=== PATIENT | male | born 1960 | race Caucasian/White ===

== ENCOUNTER 2017-08-08 13:47 | Observation (INO) ==
[2017-08-08] MEDS ORDERED: ENOXAPARIN 100 MG/ML SYRINGE SUBCUT STA (14:13)
[2017-08-08] MEDS ORDERED: ASPIRIN 325 MG TABLET PO STA (14:13)
[2017-08-08] MEDS ORDERED: ALBUTEROL/IPRATROPIUM 3 ML NEB RESP TX STA (14:15)
[2017-08-08 14:25] LABS: Basophils # 0.1 10*3/uL (0.0-0.2); Eosinophils # 0.1 10*3/uL (0.0-0.87); Eosinophils % 0.7 % (0.00-10.9); Hematocrit 43.6 VOL% (42.0-52.0); Hemoglobin 15.2 GM/DL (14.0-18.0); Immature Granulocytes % 0.4 %; Immature Granulocytes Absolute 0.04 #; Lymphocytes # 2.3 10*3/uL (1.4-4.0); Lymphocytes % 23.1 % (21.2-54.2); Mean Corpuscular HGB Conc 34.9 GM/DL (32-36); Mean Corpuscular Hemoglobin 32 PG (27-34); Mean Corpuscular Volume 90.3 FL (87-102); Mean Platelet Volume 8.6 FL (9.6-12.0); Monocytes # 0.8 10*3/uL (0.11-0.8); Monocytes % 8.1 % (1.7-12.7); Neutrophils # 6.7 10*3/uL (1.4-7.4); Neutrophils % 66.7 % (38.7-73.9); Platelet Count 303 T/CUMM (130-400); Red Blood Count 4.83 MC/CUMM (3.8-5.5); Red Cell Distribution Width 12.6 % (9.3-17.3); White Blood Count 10.1 T/CUMM (4-12)
[2017-08-08] MEDS ORDERED: ASPIRIN 325 MG TABLET ONE (14:44)
[2017-08-08] MEDS ORDERED: ENOXAPARIN 100 MG/ML SYRINGE SUBCUT ONE (14:44)
[2017-08-08 14:50] LABS: Alanine Aminotransferase 16 U/L (16-61); Albumin 4.1 G/DL (3.4-5.0); Alkaline Phosphatase 113 U/L (45-117); Aspartate Amino Transferase 11 U/L (0-37); Bilirubin,Total < 0.39 MG/DL (0.2-1.0); Blood Urea Nitrogen 4 MG/DL (7-18); Calcium 8.7 MG/DL (8.5-10.1); Glucose 103 MG/DL (74-106); Osmolality,Calculated 269.8 MOS/KG (273-304); Potassium 4.1 MMOL/L (3.5-5.1); Sodium 137 MMOL/L (136-145); Total Protein 7.4 G/DL (6.4-8.3)
[2017-08-08] MEDS ORDERED: MORPHINE 2 MG/1 ML SYRINGE IV PRN (16:18)
[2017-08-08] MEDS ORDERED: ONDANSETRON 4 MG/2 ML VIAL IV PRN (16:18)
[2017-08-08] MEDS ORDERED: NITROGLYCERIN SL 0.4 MG TABLET SL PRN (16:18)
[2017-08-08] MEDS ORDERED: NYSTATIN 500,000 UNIT/5 ML UDCUP SWISH/SWAL PRN (16:22)
[2017-08-08] MEDS ORDERED: TRIAMCINOLONE 0.1% CREAM 15 GM TUBE TOP PRN (16:22)
[2017-08-08] MEDS: PANTOPRAZOLE 40 MG TABLET PO SCH (18:24)
[2017-08-08] MEDS: ALBUTEROL/IPRATROPIUM 3 ML NEB RESP TX SCH (20:10)
[2017-08-08] MEDS: SULFAMETHOX/TRIMETHOPRIM 800-160 MG TABLET PO SCH (20:35)
[2017-08-08] MEDS: BUDESONIDE/FORMOTEROL 160-4.5 INHALER 6 GM INH SCH (20:36)
[2017-08-09] MEDS: ALBUTEROL/IPRATROPIUM 3 ML NEB RESP TX SCH ×4 (08:00→19:32)
[2017-08-09 08:54] LABS: Risk Ratio 8.48; VLDL CHOLESTEROL 76.2 MG/DL
[2017-08-09] MEDS: CYANOCOBALAMIN 500 MCG TABLET PO SCH (09:07)
[2017-08-09] MEDS: SULFAMETHOX/TRIMETHOPRIM 800-160 MG TABLET PO SCH ×2 (09:07→20:52)
[2017-08-09] MEDS: ASPIRIN EC 325 MG TABLET PO SCH (09:07)
[2017-08-09] MEDS: CALCIUM (CARBONATE)/VITAMIN D 600 MG-400 UNIT TABLET PO SCH (09:07)
[2017-08-09] MEDS: CHOLECALCIFEROL 400 UNIT TABLET PO SCH (09:07)
[2017-08-09] MEDS: MONTELUKAST 10 MG TABLET PO SCH (09:07)
[2017-08-09] MEDS: PANTOPRAZOLE 40 MG TABLET PO SCH (09:07)
[2017-08-09] MEDS: TRIAMTERENE/HCTZ 37.5-25 MG CAPSULE PO SCH (09:07)
[2017-08-09] MEDS: ENOXAPARIN 40 MG/0.4 ML SYRINGE SUBCUT SCH (09:07)
[2017-08-09] MEDS: BUDESONIDE/FORMOTEROL 160-4.5 INHALER 6 GM INH SCH ×2 (09:09→20:52)
[2017-08-09] MEDS: DILTIAZEM CD 180 MG CAPSULE PO SCH (09:12)
[2017-08-09] MEDS: methylPREDNISolone SOD SUC 125 MG/2 ML VIAL IV SCH ×2 (11:58→23:44)
[2017-08-10] MEDS: ALBUTEROL/IPRATROPIUM 3 ML NEB RESP TX SCH ×4 (07:04→20:59)
[2017-08-10] MEDS: CHOLECALCIFEROL 400 UNIT TABLET PO SCH (08:29)
[2017-08-10] MEDS: TRIAMTERENE/HCTZ 37.5-25 MG CAPSULE PO SCH (08:29)
[2017-08-10] MEDS: CALCIUM (CARBONATE)/VITAMIN D 600 MG-400 UNIT TABLET PO SCH (08:30)
[2017-08-10] MEDS: CYANOCOBALAMIN 500 MCG TABLET PO SCH (08:30)
[2017-08-10] MEDS: DILTIAZEM CD 180 MG CAPSULE PO SCH (08:30)
[2017-08-10] MEDS: SULFAMETHOX/TRIMETHOPRIM 800-160 MG TABLET PO SCH ×2 (08:31→20:57)
[2017-08-10] MEDS: PANTOPRAZOLE 40 MG TABLET PO SCH (08:31)
[2017-08-10] MEDS: ASPIRIN EC 325 MG TABLET PO SCH (08:31)
[2017-08-10] MEDS: ENOXAPARIN 40 MG/0.4 ML SYRINGE SUBCUT SCH (08:31)
[2017-08-10] MEDS: MONTELUKAST 10 MG TABLET PO SCH (08:31)
[2017-08-10] MEDS: BUDESONIDE/FORMOTEROL 160-4.5 INHALER 6 GM INH SCH ×2 (08:32→20:58)
[2017-08-10] MEDS ORDERED: MAGNESIUM OXIDE 400 MG TABLET PO SCH (09:00)
[2017-08-10] MEDS ORDERED: OMEGA 3 ACID ETHYL ESTERS 1 GM CAPSULE PO SCH (09:00)
[2017-08-10] MEDS: methylPREDNISolone SOD SUC 40 MG/1 ML VIAL IV SCH ×2 (12:39)
[2017-08-11] MEDS: methylPREDNISolone SOD SUC 40 MG/1 ML VIAL IV SCH ×2 (00:09→13:33)
[2017-08-11] MEDS: ALBUTEROL/IPRATROPIUM 3 ML NEB RESP TX SCH ×3 (07:30→14:32)
[2017-08-11] MEDS: SULFAMETHOX/TRIMETHOPRIM 800-160 MG TABLET PO SCH (09:16)
[2017-08-11] MEDS: CALCIUM (CARBONATE)/VITAMIN D 600 MG-400 UNIT TABLET PO SCH (09:17)
[2017-08-11] MEDS: DILTIAZEM CD 180 MG CAPSULE PO SCH (09:18)
[2017-08-11] MEDS: MONTELUKAST 10 MG TABLET PO SCH (09:19)
[2017-08-11] MEDS: CHOLECALCIFEROL 400 UNIT TABLET PO SCH (09:19)
[2017-08-11] MEDS: ASPIRIN EC 325 MG TABLET PO SCH (09:20)
[2017-08-11] MEDS: TRIAMTERENE/HCTZ 37.5-25 MG CAPSULE PO SCH (09:20)
[2017-08-11] MEDS: CYANOCOBALAMIN 500 MCG TABLET PO SCH (09:20)
[2017-08-11] MEDS: PANTOPRAZOLE 40 MG TABLET PO SCH (09:20)
[2017-08-11] MEDS: BUDESONIDE/FORMOTEROL 160-4.5 INHALER 6 GM INH SCH (09:21)
[2017-08-11] MEDS: ENOXAPARIN 40 MG/0.4 ML SYRINGE SUBCUT SCH (09:22)
[2017-08-11 13:21] VITALS: BP 145/67
== END 2017-08-11 15:55 | disposition home or self-care (01) ==
LOC: N.EDINP 13:47 → N.ED 13:47 → SUATTDRO 16:00 → N.TELEN 17:19 → N.4E 08-10 13:53
PROVIDERS: ADMIT Internal Medicine; ATTEND Internal Medicine

== ENCOUNTER 2017-12-04 23:25 | Inpatient (IN) ==
[2017-12-05] MEDS ORDERED: traMADol 50 MG TABLET ONE (00:20)
[2017-12-05] MEDS ORDERED: KETOROLAC 60 MG/2 ML VIAL IM ONE (00:20)
[2017-12-05] MEDS ORDERED: methylPREDNISolone SOD SUC 125 MG/2 ML VIAL ONE ×2 (00:20→02:12)
[2017-12-05] MEDS ORDERED: cefTRIAXone 1,000 MG in SODIUM CHLORIDE 0.9% 100 ML IV STA (00:21)
[2017-12-05] MEDS ORDERED: FUROSEMIDE 100 MG/10 ML VIAL IV STA (00:21)
[2017-12-05] MEDS ORDERED: methylPREDNISolone SOD SUC 125 MG/2 ML VIAL IV STA (00:21)
[2017-12-05] MEDS ORDERED: ALBUTEROL 2.5 MG/3 ML NEB RESP TX SCH (00:30)
[2017-12-05 01:04] LABS: ABG Base Excess 7.6 MMOL/L (-2.5-2.5); ABG HCO3 35.9 MMOL/L (20-26); ABG Oxygen Saturation 96.8 % (95-100); ABG PCO2 66.4 MM HG (35-48); ABG PH 7.351 (7.35-7.45); ABG PO2 88.1 MM HG (80-95); Allen Test Positive
[2017-12-05 01:45] LABS: Basophils # 0.1 10*3/uL (0.0-0.2); Basophils % 0.3 % (0.0-0.8); Eosinophils % 0.1 % (0.00-10.9); Hematocrit 43.4 VOL% (42.0-52.0); Hemoglobin 14.5 GM/DL (14.0-18.0); Immature Granulocytes % 0.5 %; Immature Granulocytes Absolute 0.08 #; Lymphocytes # 2.3 10*3/uL (1.4-4.0); Mean Corpuscular HGB Conc 33.4 GM/DL (32-36); Mean Corpuscular Hemoglobin 31 PG (27-34); Mean Corpuscular Volume 92.1 FL (87-102); Mean Platelet Volume 9.6 FL (9.6-12.0); Monocytes # 1.7 10*3/uL (0.11-0.8); Monocytes % 9.8 % (1.7-12.7); Neutrophils # 13.4 10*3/uL (1.4-7.4); Neutrophils % 76.3 % (38.7-73.9); Platelet Count 280 T/CUMM (130-400); Red Blood Count 4.71 MC/CUMM (3.8-5.5); Red Cell Distribution Width 12.6 % (9.3-17.3); White Blood Count 17.6 T/CUMM (4-12)
[2017-12-05 01:56] LABS: PT Patient Result 10.6 SECS
[2017-12-05 02:05] LABS: Alanine Aminotransferase 16 U/L (16-61); Albumin 3.8 G/DL (3.4-5.0); Alkaline Phosphatase 107 U/L (45-117); Aspartate Amino Transferase 18 U/L (0-37); Blood Urea Nitrogen 13 MG/DL (7-18); Calcium 9.1 MG/DL (8.5-10.1); Glucose 100 MG/DL (74-106); Osmolality,Calculated 272.8 MOS/KG (273-304); Potassium 4.6 MMOL/L (3.5-5.1); Sodium 137 MMOL/L (136-145); Total Protein 7.6 G/DL (6.4-8.3); Troponin I Only < 0.015 NG/ML (0.00-0.045)
[2017-12-05 02:06] LABS: Lactic Acid 0.9 MMOL/L (0.4-2.0)
[2017-12-05] MEDS ORDERED: FUROSEMIDE 40 MG/4 ML VIAL ONE (02:12)
[2017-12-05] MEDS ORDERED: cefTRIAXone 1,000 MG VIAL ONE (02:12)
[2017-12-05] MEDS ORDERED: ONDANSETRON 4 MG/2 ML VIAL IV PRN (03:33)
[2017-12-05] MEDS ORDERED: ALBUTEROL 2.5 MG/3 ML NEB RESP TX PRN (03:54)
[2017-12-05] MEDS: AZITHROMYCIN INJ 500 MG in SODIUM CHLORIDE 0.9% 250 ML IV SCH (05:00)
[2017-12-05] MEDS: ALBUTEROL/IPRATROPIUM 3 ML NEB RESP TX SCH ×3 (07:32→19:59)
[2017-12-05] MEDS ORDERED: INFLUENZA VIRUS VACCINE 0.5 ML SYRINGE IM ONE (09:00)
[2017-12-05] MEDS: ENOXAPARIN 40 MG/0.4 ML SYRINGE SUBCUT SCH (09:05)
[2017-12-05] MEDS: methylPREDNISolone SOD SUC 40 MG/1 ML VIAL IV SCH ×2 (09:05→16:25)
[2017-12-05] MEDS: OMEGA 3 ACID ETHYL ESTERS 1 GM CAPSULE PO SCH (09:06)
[2017-12-05] MEDS: TRIAMTERENE/HCTZ 37.5-25 MG TABLET PO SCH (09:06)
[2017-12-05] MEDS: CHOLECALCIFEROL 400 UNIT TABLET PO SCH (09:06)
[2017-12-05] MEDS: ASPIRIN EC 81 MG TABLET PO SCH (09:06)
[2017-12-05] MEDS: MAGNESIUM OXIDE 400 MG TABLET PO SCH (09:07)
[2017-12-05] MEDS: CYANOCOBALAMIN 500 MCG TABLET PO SCH (09:07)
[2017-12-05] MEDS: CALCIUM (CARBONATE)/VITAMIN D 600 MG-400 UNIT TABLET PO SCH (09:07)
[2017-12-05] MEDS: DILTIAZEM CD 180 MG CAPSULE PO SCH (09:08)
[2017-12-05] MEDS: MONTELUKAST 10 MG TABLET PO SCH (09:08)
[2017-12-05] MEDS: BUDESONIDE/FORMOTEROL 160-4.5 INHALER 6 GM INH SCH ×2 (09:08→20:38)
[2017-12-05] MEDS: PANTOPRAZOLE 40 MG TABLET PO SCH (09:08)
[2017-12-05] MEDS ORDERED: TRIAMCINOLONE 0.1% CREAM 15 GM TUBE TOP PRN (12:24)
[2017-12-05] MEDS ORDERED: NYSTATIN 500,000 UNIT/5 ML UDCUP SWISH/SWAL PRN (12:24)
[2017-12-05] MEDS: ATORVASTATIN 20 MG TABLET PO SCH (20:38)
[2017-12-06] MEDS: ALBUTEROL/IPRATROPIUM 3 ML NEB RESP TX SCH ×4 (00:50→20:17)
[2017-12-06] MEDS: methylPREDNISolone SOD SUC 40 MG/1 ML VIAL IV SCH ×3 (01:47→17:13)
[2017-12-06 07:35] LABS: Basophils % 0.1 % (0.0-0.8); Hematocrit 38.4 VOL% (42.0-52.0); Hemoglobin 13.3 GM/DL (14.0-18.0); Immature Granulocytes % 0.6 %; Immature Granulocytes Absolute 0.07 #; Lymphocytes # 0.8 10*3/uL (1.4-4.0); Lymphocytes % 6.7 % (21.2-54.2); Mean Corpuscular HGB Conc 34.6 GM/DL (32-36); Mean Corpuscular Hemoglobin 31 PG (27-34); Mean Corpuscular Volume 88.9 FL (87-102); Mean Platelet Volume 9.7 FL (9.6-12.0); Monocytes # 0.7 10*3/uL (0.11-0.8); Monocytes % 5.9 % (1.7-12.7); Neutrophils # 10.7 10*3/uL (1.4-7.4); Neutrophils % 86.7 % (38.7-73.9); Platelet Count 303 T/CUMM (130-400); Red Blood Count 4.32 MC/CUMM (3.8-5.5); Red Cell Distribution Width 12.3 % (9.3-17.3); White Blood Count 12.3 T/CUMM (4-12)
[2017-12-06 08:01] LABS: Calcium 8.6 MG/DL (8.5-10.1); Osmolality,Calculated 273.2 MOS/KG (273-304)
[2017-12-06] MEDS: TRIAMTERENE/HCTZ 37.5-25 MG TABLET PO SCH (09:44)
[2017-12-06] MEDS: CALCIUM (CARBONATE)/VITAMIN D 600 MG-400 UNIT TABLET PO SCH (09:44)
[2017-12-06] MEDS: DILTIAZEM CD 180 MG CAPSULE PO SCH (09:45)
[2017-12-06] MEDS: MONTELUKAST 10 MG TABLET PO SCH (09:47)
[2017-12-06] MEDS: CHOLECALCIFEROL 400 UNIT TABLET PO SCH (09:47)
[2017-12-06] MEDS: PANTOPRAZOLE 40 MG TABLET PO SCH (09:47)
[2017-12-06] MEDS: CYANOCOBALAMIN 500 MCG TABLET PO SCH (09:47)
[2017-12-06] MEDS: BUDESONIDE/FORMOTEROL 160-4.5 INHALER 6 GM INH SCH ×2 (09:48→21:17)
[2017-12-06] MEDS: ENOXAPARIN 40 MG/0.4 ML SYRINGE SUBCUT SCH (09:48)
[2017-12-06] MEDS: ASPIRIN EC 81 MG TABLET PO SCH (09:48)
[2017-12-06] MEDS: cefTRIAXone 1,000 MG in SYRINGE 1 EACH IV SCH (09:57)
[2017-12-06] MEDS: AZITHROMYCIN INJ 500 MG in SODIUM CHLORIDE 0.9% 250 ML IV SCH (10:02)
[2017-12-06] MEDS: ATORVASTATIN 20 MG TABLET PO SCH (21:17)
[2017-12-07] MEDS: methylPREDNISolone SOD SUC 40 MG/1 ML VIAL IV SCH ×2 (00:57→09:29)
[2017-12-07] MEDS: ZALEPLON 5 MG CAPSULE PO PRN ×2 (01:03→23:21)
[2017-12-07] MEDS: ALBUTEROL/IPRATROPIUM 3 ML NEB RESP TX SCH ×4 (01:14→19:38)
[2017-12-07] MEDS: DILTIAZEM CD 180 MG CAPSULE PO SCH (09:07)
[2017-12-07] MEDS: CHOLECALCIFEROL 400 UNIT TABLET PO SCH (09:08)
[2017-12-07] MEDS: MAGNESIUM OXIDE 400 MG TABLET PO SCH (09:08)
[2017-12-07] MEDS: CYANOCOBALAMIN 500 MCG TABLET PO SCH (09:08)
[2017-12-07] MEDS: BUDESONIDE/FORMOTEROL 160-4.5 INHALER 6 GM INH SCH ×2 (09:08→21:40)
[2017-12-07] MEDS: TRIAMTERENE/HCTZ 37.5-25 MG TABLET PO SCH (09:08)
[2017-12-07] MEDS: MONTELUKAST 10 MG TABLET PO SCH (09:09)
[2017-12-07] MEDS: CALCIUM (CARBONATE)/VITAMIN D 600 MG-400 UNIT TABLET PO SCH (09:10)
[2017-12-07] MEDS: PANTOPRAZOLE 40 MG TABLET PO SCH (09:10)
[2017-12-07] MEDS: OMEGA 3 ACID ETHYL ESTERS 1 GM CAPSULE PO SCH (09:10)
[2017-12-07] MEDS: ASPIRIN EC 81 MG TABLET PO SCH (09:10)
[2017-12-07] MEDS: ENOXAPARIN 40 MG/0.4 ML SYRINGE SUBCUT SCH (09:13)
[2017-12-07] MEDS: cefTRIAXone 1,000 MG in SYRINGE 1 EACH IV SCH (09:15)
[2017-12-07] MEDS: AZITHROMYCIN INJ 500 MG in SODIUM CHLORIDE 0.9% 250 ML IV SCH (09:16)
[2017-12-07] MEDS: ATORVASTATIN 20 MG TABLET PO SCH (21:40)
[2017-12-08] MEDS: ALBUTEROL/IPRATROPIUM 3 ML NEB RESP TX SCH ×2 (00:06→06:54)
[2017-12-08] MEDS ORDERED: methylPREDNISolone SOD SUC 40 MG/1 ML VIAL IV SCH (09:00)
[2017-12-08] MEDS: AZITHROMYCIN INJ 500 MG in SODIUM CHLORIDE 0.9% 250 ML IV SCH (09:56)
[2017-12-08] MEDS: ENOXAPARIN 40 MG/0.4 ML SYRINGE SUBCUT SCH ×2 (09:57→11:43)
[2017-12-08] MEDS: cefTRIAXone 1,000 MG in SYRINGE 1 EACH IV SCH (09:57)
[2017-12-08] MEDS: MONTELUKAST 10 MG TABLET PO SCH (11:34)
[2017-12-08] MEDS: TRIAMTERENE/HCTZ 37.5-25 MG TABLET PO SCH (11:34)
[2017-12-08] MEDS: CHOLECALCIFEROL 400 UNIT TABLET PO SCH (11:35)
[2017-12-08] MEDS: CYANOCOBALAMIN 500 MCG TABLET PO SCH (11:35)
[2017-12-08] MEDS: CALCIUM (CARBONATE)/VITAMIN D 600 MG-400 UNIT TABLET PO SCH (11:36)
[2017-12-08] MEDS: DILTIAZEM CD 180 MG CAPSULE PO SCH (11:36)
[2017-12-08] MEDS: PANTOPRAZOLE 40 MG TABLET PO SCH (11:36)
[2017-12-08] MEDS: ASPIRIN EC 81 MG TABLET PO SCH (11:36)
[2017-12-08] MEDS: BUDESONIDE/FORMOTEROL 160-4.5 INHALER 6 GM INH SCH (11:37)
[2017-12-08 11:50] VITALS: BP 167/98
== END 2017-12-08 13:22 | disposition home or self-care (01) | DRG 140 ==
LOC: N.ED 23:25 → N.EDINP 12-05 03:25 → N.2E 12-05 03:37
PROVIDERS: ADMIT Internal Medicine; ATTEND Internal Medicine

== ENCOUNTER 2018-07-30 11:39 | Inpatient (IN) ==
[2018-07-30] MEDS ORDERED: methylPREDNISolone SOD SUC 125 MG/2 ML VIAL IV STA (12:19)
[2018-07-30] MEDS ORDERED: ONDANSETRON 4 MG/2 ML VIAL IV STA (12:19)
[2018-07-30] MEDS ORDERED: SODIUM CHLORIDE 0.9% 1,000 ML IV STA (12:19)
[2018-07-30] MEDS ORDERED: cefTRIAXone 1,000 MG in SODIUM CHLORIDE 0.9% 100 ML IV STA (12:19)
[2018-07-30] MEDS ORDERED: ALBUTEROL NEB SOLN 5 MG/ML 20 ML/BOTTLE RESP TX SCH (12:30)
[2018-07-30 12:42] LABS: Basophils # 0.1 10*3/uL (0.0-0.2); Basophils % 0.7 % (0.0-0.8); Eosinophils # 0.1 10*3/uL (0.0-0.87); Eosinophils % 0.6 % (0.00-10.9); Hemoglobin 15.3 GM/DL (14.0-18.0); Immature Granulocytes % 0.7 %; Immature Granulocytes Absolute 0.09 #; Lymphocytes # 2.4 10*3/uL (1.4-4.0); Lymphocytes % 19.1 % (21.2-54.2); Mean Corpuscular HGB Conc 33.3 GM/DL (32-36); Mean Corpuscular Hemoglobin 30 PG (27-34); Mean Corpuscular Volume 90.4 FL (87-102); Mean Platelet Volume 9.2 FL (9.6-12.0); Monocytes # 1.3 10*3/uL (0.11-0.8); Monocytes % 10.2 % (1.7-12.7); Neutrophils # 8.6 10*3/uL (1.4-7.4); Neutrophils % 68.7 % (38.7-73.9); Platelet Count 372 T/CUMM (130-400); Red Blood Count 5.09 MC/CUMM (3.8-5.5); Red Cell Distribution Width 12.7 % (9.3-17.3); White Blood Count 12.6 T/CUMM (4-12)
[2018-07-30 12:51] LABS: PT Patient Result 10.1 SECS
[2018-07-30 12:53] LABS: ABG Base Excess 4.7 MMOL/L (-2.5-2.5); ABG HCO3 28.6 MMOL/L (20-26); ABG Oxygen Saturation 97.9 % (95-100); ABG PCO2 50.1 MM HG (35-48); ABG PH 7.399 (7.35-7.45); ABG PO2 98.8 MM HG (80-95); ABG TCO2 26.3 MMOL/L (23-27)
[2018-07-30 13:04] LABS: Albumin 4.4 G/DL (3.4-5.0); Bilirubin,Total 0.8 MG/DL (0.2-1.0); Potassium 4.2 MMOL/L (3.5-5.1); Total Protein 7.4 G/DL (6.4-8.3)
[2018-07-30 13:18] LABS: Lactic Acid 1.4 MMOL/L (0.4-2.0)
[2018-07-30] MEDS ORDERED: ONDANSETRON 4 MG/2 ML VIAL IV PRN (14:02)
[2018-07-30] MEDS ORDERED: ACETAMINOPHEN 325 MG TABLET PO PRN (14:02)
[2018-07-30] MEDS ORDERED: ENOXAPARIN 30 MG/0.3 ML SYRINGE SUBCUT SCH (14:30)
[2018-07-30] MEDS ORDERED: NYSTATIN 500,000 UNIT/5 ML UDCUP SWISH/SWAL PRN (15:52)
[2018-07-30] MEDS ORDERED: ENOXAPARIN 100 MG/ML SYRINGE SUBCUT SCH (16:00)
[2018-07-30] MEDS: SODIUM CHLORIDE 0.9% 1,000 ML IV SCH (16:00)
[2018-07-30] MEDS: LEVOFLOXACIN INJ 500 MG in PREMIX 1 EACH IV SCH (16:46)
[2018-07-30] MEDS: MONTELUKAST 10 MG TABLET PO SCH (16:46)
[2018-07-30] MEDS: methylPREDNISolone SOD SUC 40 MG/1 ML VIAL IV SCH (16:47)
[2018-07-30] MEDS: ALBUTEROL/IPRATROPIUM 3 ML NEB RESP TX SCH (19:05)
[2018-07-30] MEDS: BUDESONIDE/FORMOTEROL 160-4.5 INHALER 6 GM INH SCH (21:10)
[2018-07-31 03:19] LABS: Apearance,Urine CLOUDY (Clear); Bacteria,Urine Occasional /HPF (Few); Bilirubin,Urine Negative (Negative); Blood, Urine Negative (Negative); Glucose,Urine (UA) Negative (Negative); Granular Casts,Urine 7 /LPF (0-1); Hyaline Casts,Urine 4 /LPF (0-3); Ketones,Urine Negative (Negative); Mucus,Urine Occasional /LPF (Occasional); Nitrite,Urine Negative (Negative); Protein,Urine 100 MG/DL; RBC,Urine 1 /HPF (0-4); Urine Color Amber (Yellow); Urine Specific Gravity 1.012 (1.001-1.035); WBC,Urine 2 /HPF (0-6)
[2018-07-31] MEDS: methylPREDNISolone SOD SUC 40 MG/1 ML VIAL IV SCH ×2 (04:45→15:08)
[2018-07-31 04:53] LABS: Basophils % 0.2 % (0.0-0.8); Hematocrit 38.7 VOL% (42.0-52.0); Hemoglobin 12.3 GM/DL (14.0-18.0); Immature Granulocytes % 1.4 %; Immature Granulocytes Absolute 0.14 #; Lymphocytes # 0.9 10*3/uL (1.4-4.0); Lymphocytes % 8.9 % (21.2-54.2); Mean Corpuscular HGB Conc 31.8 GM/DL (32-36); Mean Corpuscular Hemoglobin 29 PG (27-34); Mean Corpuscular Volume 91.5 FL (87-102); Mean Platelet Volume 9.5 FL (9.6-12.0); Monocytes # 0.3 10*3/uL (0.11-0.8); Monocytes % 3.3 % (1.7-12.7); Neutrophils # 8.8 10*3/uL (1.4-7.4); Neutrophils % 86.2 % (38.7-73.9); Platelet Count 309 T/CUMM (130-400); Red Blood Count 4.23 MC/CUMM (3.8-5.5); Red Cell Distribution Width 12.7 % (9.3-17.3); White Blood Count 10.2 T/CUMM (4-12)
[2018-07-31 05:26] LABS: Albumin 3.6 G/DL (3.4-5.0); Bilirubin,Total 0.7 MG/DL (0.2-1.0); Calcium 7.7 MG/DL (8.5-10.1); Osmolality,Calculated 270.7 MOS/KG (273-304); Potassium 5.2 MMOL/L (3.5-5.1); Risk Ratio 7.92; Thyroid Stimulating Hormone 0.46 uIU/ml (0.358-3.74); Total Protein 6.7 G/DL (6.4-8.3); VLDL CHOLESTEROL 29.4 MG/DL
[2018-07-31] MEDS: SODIUM CHLORIDE 0.9% 1,000 ML IV SCH (06:46)
[2018-07-31] MEDS: ALBUTEROL/IPRATROPIUM 3 ML NEB RESP TX SCH ×3 (07:10→18:40)
[2018-07-31] MEDS: MONTELUKAST 10 MG TABLET PO SCH (08:38)
[2018-07-31] MEDS: PANTOPRAZOLE 40 MG TABLET PO SCH (08:38)
[2018-07-31] MEDS: BUDESONIDE/FORMOTEROL 160-4.5 INHALER 6 GM INH SCH ×2 (08:39→21:05)
[2018-07-31] MEDS ORDERED: PANTOPRAZOLE 40 MG TABLET PO SCH (09:00)
[2018-07-31] MEDS: FINASTERIDE 5 MG TABLET PO SCH (12:40)
[2018-07-31] MEDS ORDERED: cefTRIAXone 1,000 MG in SYRINGE 1 EACH IV SCH (14:00)
[2018-07-31] MEDS: ENOXAPARIN 30 MG/0.3 ML SYRINGE SUBCUT SCH (21:03)
[2018-07-31] MEDS: TAMSULOSIN 0.4 MG CAPSULE PO SCH (21:03)
[2018-08-01] MEDS: methylPREDNISolone SOD SUC 40 MG/1 ML VIAL IV SCH ×2 (04:52→18:50)
[2018-08-01] MEDS: ALBUTEROL/IPRATROPIUM 3 ML NEB RESP TX SCH ×4 (07:10→18:53)
[2018-08-01] MEDS: FINASTERIDE 5 MG TABLET PO SCH (09:51)
[2018-08-01] MEDS: MONTELUKAST 10 MG TABLET PO SCH (09:51)
[2018-08-01] MEDS: BUDESONIDE/FORMOTEROL 160-4.5 INHALER 6 GM INH SCH ×2 (09:52→21:09)
[2018-08-01] MEDS: PANTOPRAZOLE 40 MG TABLET PO SCH (09:52)
[2018-08-01 11:22] LABS: Calcium 7.8 MG/DL (8.5-10.1); Osmolality,Calculated 288.4 MOS/KG (273-304)
[2018-08-01] MEDS: LEVOFLOXACIN INJ 500 MG in PREMIX 1 EACH IV SCH (18:45)
[2018-08-01] MEDS: amLODIPine 5 MG TABLET PO SCH (18:51)
[2018-08-01] MEDS: ENOXAPARIN 30 MG/0.3 ML SYRINGE SUBCUT SCH (21:10)
[2018-08-01] MEDS: TAMSULOSIN 0.4 MG CAPSULE PO SCH (21:10)
[2018-08-01] MEDS ORDERED: diphenhydrAMINE CAP 25 MG CAPSULE PO PRN (23:41)
[2018-08-02] MEDS: methylPREDNISolone SOD SUC 40 MG/1 ML VIAL IV SCH ×2 (04:46→16:45)
[2018-08-02 04:48] LABS: Basophils % 0.1 % (0.0-0.8); Hematocrit 35.9 VOL% (42.0-52.0); Immature Granulocytes % 1.5 %; Immature Granulocytes Absolute 0.14 #; Lymphocytes # 0.6 10*3/uL (1.4-4.0); Lymphocytes % 6.2 % (21.2-54.2); Mean Corpuscular HGB Conc 33.4 GM/DL (32-36); Mean Corpuscular Hemoglobin 30 PG (27-34); Mean Corpuscular Volume 90.9 FL (87-102); Mean Platelet Volume 9.7 FL (9.6-12.0); Monocytes # 0.7 10*3/uL (0.11-0.8); Neutrophils # 8.1 10*3/uL (1.4-7.4); Neutrophils % 85.2 % (38.7-73.9); Platelet Count 288 T/CUMM (130-400); Red Blood Count 3.95 MC/CUMM (3.8-5.5); White Blood Count 9.5 T/CUMM (4-12)
[2018-08-02 05:06] LABS: Osmolality,Calculated 290.8 MOS/KG (273-304); Potassium 5.4 MMOL/L (3.5-5.1)
[2018-08-02] MEDS: ALBUTEROL/IPRATROPIUM 3 ML NEB RESP TX SCH ×3 (06:49→19:14)
[2018-08-02] MEDS ORDERED: SODIUM POLYSTYRENE SULFATE 15 GM/60 ML BOTTLE PO STA (08:23)
[2018-08-02] MEDS ORDERED: PROPOFOL 200 MG/20 ML VIAL IV ONE (09:00)
[2018-08-02] MEDS ORDERED: LIDOCAINE 100 MG/5 ML SYRINGE ONE (09:00)
[2018-08-02] MEDS ORDERED: HYDROmorphone 2 MG/1 ML VIAL IV ONE (10:54)
[2018-08-02] MEDS: amLODIPine 5 MG TABLET PO SCH (14:57)
[2018-08-02] MEDS: POLYETHYLENE GLYCOL POWDER 17 GM PACK PO SCH ×2 (14:57→21:45)
[2018-08-02] MEDS: DOCUSATE SODIUM 100 MG CAPSULE PO SCH ×2 (14:57→21:47)
[2018-08-02] MEDS: FINASTERIDE 5 MG TABLET PO SCH (14:57)
[2018-08-02] MEDS: PANTOPRAZOLE 40 MG TABLET PO SCH (14:57)
[2018-08-02] MEDS: BUDESONIDE/FORMOTEROL 160-4.5 INHALER 6 GM INH SCH ×2 (14:58→21:49)
[2018-08-02] MEDS: MONTELUKAST 10 MG TABLET PO SCH (14:58)
[2018-08-02] MEDS: METOCLOPRAMIDE 10 MG/10 ML UDCUP PO SCH ×2 (16:45→21:45)
[2018-08-02] MEDS ORDERED: SODIUM POLYSTYRENE SULFATE 15 GM/60 ML BOTTLE PO ONE (21:00)
[2018-08-02] MEDS: TAMSULOSIN 0.4 MG CAPSULE PO SCH (21:47)
[2018-08-02] MEDS: METOPROLOL TARTRATE 25 MG TABLET PO SCH (21:47)
[2018-08-02] MEDS: ENOXAPARIN 30 MG/0.3 ML SYRINGE SUBCUT SCH (21:47)
[2018-08-03] MEDS: methylPREDNISolone SOD SUC 40 MG/1 ML VIAL IV SCH (04:15)
[2018-08-03 05:58] LABS: Hematocrit 35.7 VOL% (42.0-52.0); Hemoglobin 11.6 GM/DL (14.0-18.0); Immature Granulocytes Absolute 0.08 #; Lymphocytes # 0.9 10*3/uL (1.4-4.0); Lymphocytes % 11.1 % (21.2-54.2); Mean Corpuscular HGB Conc 32.5 GM/DL (32-36); Mean Corpuscular Hemoglobin 30 PG (27-34); Mean Platelet Volume 9.6 FL (9.6-12.0); Monocytes # 0.8 10*3/uL (0.11-0.8); Monocytes % 9.5 % (1.7-12.7); Neutrophils # 6.2 10*3/uL (1.4-7.4); Neutrophils % 78.4 % (38.7-73.9); Platelet Count 286 T/CUMM (130-400); Red Blood Count 3.84 MC/CUMM (3.8-5.5); Red Cell Distribution Width 13.2 % (9.3-17.3); White Blood Count 7.9 T/CUMM (4-12)
[2018-08-03] MEDS: ALBUTEROL/IPRATROPIUM 3 ML NEB RESP TX SCH (07:25)
[2018-08-03] MEDS ORDERED: amLODIPine 10 MG TABLET PO SCH (09:00)
[2018-08-03] MEDS: METOPROLOL TARTRATE 25 MG TABLET PO SCH (09:02)
[2018-08-03] MEDS: FINASTERIDE 5 MG TABLET PO SCH (09:02)
[2018-08-03] MEDS: DOCUSATE SODIUM 100 MG CAPSULE PO SCH (09:02)
[2018-08-03] MEDS: PANTOPRAZOLE 40 MG TABLET PO SCH (09:03)
[2018-08-03] MEDS: POLYETHYLENE GLYCOL POWDER 17 GM PACK PO SCH (09:03)
[2018-08-03] MEDS: amLODIPine 5 MG TABLET PO SCH (09:03)
[2018-08-03] MEDS: MONTELUKAST 10 MG TABLET PO SCH (09:03)
[2018-08-03] MEDS: METOCLOPRAMIDE 10 MG/10 ML UDCUP PO SCH ×2 (09:05→11:47)
[2018-08-03] MEDS: BUDESONIDE/FORMOTEROL 160-4.5 INHALER 6 GM INH SCH (09:07)
[2018-08-03] MEDS ORDERED: DOCUSATE SODIUM 100 MG CAPSULE PO PRN (10:04)
[2018-08-03 10:09] LABS: Calcium 7.6 MG/DL (8.5-10.1); Osmolality,Calculated 296.5 MOS/KG (273-304); Potassium 4.1 MMOL/L (3.5-5.1)
[2018-08-03 11:51] VITALS: BP 131/84
== END 2018-08-03 14:19 | disposition home or self-care (01) | DRG 190 ==
LOC: N.ED 11:39 → N.EDINP 11:39 → N.5E 15:26
PROVIDERS: ADMIT Hospitalist; ATTEND Hospitalist

== ENCOUNTER 2019-03-22 21:35 | Inpatient (IN) ==
[2019-03-23] MEDS ORDERED: ALBUTEROL/IPRATROPIUM 3 ML NEB RESP TX STA (00:31)
[2019-03-23] MEDS ORDERED: methylPREDNISolone SOD SUC 125 MG/2 ML VIAL IV STA (00:31)
[2019-03-23 01:00] LABS: ABG Base Excess 3.6 MMOL/L (-2.5-2.5); ABG HCO3 27.5 MMOL/L (20-26); ABG Oxygen Saturation 95.8 % (95-100); ABG PCO2 59.1 MM HG (35-48); ABG PH 7.334 (7.35-7.45); ABG PO2 81.2 MM HG (80-95); ABG TCO2 27.5 MMOL/L (23-27)
[2019-03-23 01:29] LABS: Basophils % 0.1 % (0.0-0.8); Hematocrit 41.8 VOL% (42.0-52.0); Hemoglobin 13.4 GM/DL (14.0-18.0); Immature Granulocytes % 0.6 %; Immature Granulocytes Absolute 0.08 #; Lymphocytes # 1.2 10*3/uL (1.4-4.0); Mean Corpuscular HGB Conc 32.1 GM/DL (32-36); Mean Corpuscular Volume 91.3 FL (87-102); Mean Platelet Volume 9.2 FL (9.6-12.0); Monocytes % 7.5 % (1.7-12.7); Neutrophils % 83.8 % (38.7-73.9); Platelet Count 317 T/CUMM (130-400); Red Blood Count 4.58 MC/CUMM (3.8-5.5); Red Cell Distribution Width 12.8 % (9.3-17.3); White Blood Count 14.3 T/CUMM (4-12)
[2019-03-23 01:37] LABS: PT Patient Result 10.6 SECS
[2019-03-23 01:50] LABS: Albumin 4.1 G/DL (3.4-5.0); Bilirubin,Total 0.5 MG/DL (0.2-1.0); Calcium 9.5 MG/DL (8.5-10.1); Osmolality,Calculated 280.5 MOS/KG (273-304); Total Protein 7.9 G/DL (6.4-8.3)
[2019-03-23] MEDS ORDERED: ALBUTEROL 2.5 MG/3 ML NEB RESP TX PRN (02:20)
[2019-03-23] MEDS ORDERED: ACETAMINOPHEN 325 MG TABLET PO PRN (02:20)
[2019-03-23] MEDS ORDERED: NICOTINE 21 MG/24 HR PATCH TRANSDERM PRN (02:20)
[2019-03-23] MEDS ORDERED: DOCUSATE SODIUM 100 MG CAPSULE PO PRN (02:20)
[2019-03-23] MEDS ORDERED: ONDANSETRON 4 MG/2 ML VIAL IV PRN (02:20)
[2019-03-23] MEDS ORDERED: LEVOFLOXACIN INJ 500 MG in PREMIX 1 EACH IV STA (02:24)
[2019-03-23] MEDS ORDERED: methylPREDNISolone SOD SUC 40 MG/1 ML VIAL IV SCH (02:30)
[2019-03-23 05:44] LABS: Basophils % 0.1 % (0.0-0.8); Hematocrit 39.1 VOL% (42.0-52.0); Hemoglobin 12.5 GM/DL (14.0-18.0); Immature Granulocytes % 0.8 %; Immature Granulocytes Absolute 0.09 #; Lymphocytes # 0.7 10*3/uL (1.4-4.0); Lymphocytes % 6.4 % (21.2-54.2); Mean Corpuscular Volume 91.8 FL (87-102); Mean Platelet Volume 9.5 FL (9.6-12.0); Monocytes % 1.4 % (1.7-12.7); Neutrophils % 91.3 % (38.7-73.9); Platelet Count 306 T/CUMM (130-400); Red Blood Count 4.26 MC/CUMM (3.8-5.5); Red Cell Distribution Width 12.9 % (9.3-17.3)
[2019-03-23 06:10] LABS: Band Neutrophils 3 % (0-10); Hypochromasia Slight; Lymphocytes 6 % (20-55); Platelet Estimate Normal; Segmented Neutrophils 89 % (50-85); Total Cells Counted 100
[2019-03-23 06:15] LABS: Calcium 9.3 MG/DL (8.5-10.1); Osmolality,Calculated 280.8 MOS/KG (273-304)
[2019-03-23] MEDS: ALBUTEROL/IPRATROPIUM 3 ML NEB RESP TX SCH ×3 (07:00→19:52)
[2019-03-23] MEDS: methylPREDNISolone SOD SUC 40 MG/1 ML VIAL IV SCH ×2 (09:33→16:33)
[2019-03-23] MEDS: ENOXAPARIN 40 MG/0.4 ML SYRINGE SUBCUT SCH (09:33)
[2019-03-23] MEDS: amLODIPine 10 MG TABLET PO SCH (09:34)
[2019-03-23] MEDS: METOPROLOL TARTRATE 25 MG TABLET PO SCH ×2 (09:34→23:07)
[2019-03-23] MEDS: PANTOPRAZOLE 40 MG TABLET PO SCH (09:34)
[2019-03-23] MEDS: FINASTERIDE 5 MG TABLET PO SCH (09:34)
[2019-03-23] MEDS: BUDESONIDE/FORMOTEROL 160-4.5 INHALER 6 GM INH SCH ×2 (09:39→23:06)
[2019-03-23] MEDS: guaiFENesin/DM ER 600-30 MG TABLET PO PRN ×2 (16:32→23:07)
[2019-03-23] MEDS: TAMSULOSIN 0.4 MG CAPSULE PO SCH (23:07)
[2019-03-24] MEDS: methylPREDNISolone SOD SUC 40 MG/1 ML VIAL IV SCH ×4 (00:26→21:06)
[2019-03-24] MEDS: ALBUTEROL/IPRATROPIUM 3 ML NEB RESP TX SCH ×4 (01:20→19:07)
[2019-03-24 05:10] LABS: Hematocrit 37.9 VOL% (42.0-52.0); Immature Granulocytes % 0.9 %; Immature Granulocytes Absolute 0.08 #; Lymphocytes # 0.8 10*3/uL (1.4-4.0); Lymphocytes % 8.7 % (21.2-54.2); Mean Corpuscular HGB Conc 31.7 GM/DL (32-36); Mean Corpuscular Volume 90.9 FL (87-102); Mean Platelet Volume 9.7 FL (9.6-12.0); Monocytes % 5.3 % (1.7-12.7); Neutrophils % 85.1 % (38.7-73.9); Platelet Count 290 T/CUMM (130-400); Red Blood Count 4.17 MC/CUMM (3.8-5.5); Red Cell Distribution Width 12.7 % (9.3-17.3)
[2019-03-24 05:18] LABS: Calcium 8.9 MG/DL (8.5-10.1); Osmolality,Calculated 279.7 MOS/KG (273-304)
[2019-03-24] MEDS: LEVOFLOXACIN INJ 750 MG in PREMIX 1 EACH IV SCH (06:30)
[2019-03-24] MEDS: METOPROLOL TARTRATE 25 MG TABLET PO SCH ×2 (09:52→21:03)
[2019-03-24] MEDS: ENOXAPARIN 40 MG/0.4 ML SYRINGE SUBCUT SCH (09:52)
[2019-03-24] MEDS: FINASTERIDE 5 MG TABLET PO SCH (09:53)
[2019-03-24] MEDS: amLODIPine 10 MG TABLET PO SCH (09:53)
[2019-03-24] MEDS: PANTOPRAZOLE 40 MG TABLET PO SCH (09:53)
[2019-03-24] MEDS: BUDESONIDE/FORMOTEROL 160-4.5 INHALER 6 GM INH SCH ×2 (09:53→21:04)
[2019-03-24] MEDS ORDERED: BENZONATATE 100 MG CAPSULE PO PRN (12:03)
[2019-03-24] MEDS: PHENOL 1.4% THROAT SPRAY 177 ML BOTTLE PO PRN (15:23)
[2019-03-24] MEDS: SODIUM CHLORIDE 0.65% NASAL SPRAY 45 ML BOTTLE BOTH NARES PRN ×2 (15:24→21:04)
[2019-03-24] MEDS: TAMSULOSIN 0.4 MG CAPSULE PO SCH (21:03)
[2019-03-25] MEDS: ALBUTEROL/IPRATROPIUM 3 ML NEB RESP TX SCH ×4 (00:37→19:34)
[2019-03-25] MEDS: PHENOL 1.4% THROAT SPRAY 177 ML BOTTLE PO PRN (02:32)
[2019-03-25] MEDS: LEVOFLOXACIN INJ 750 MG in PREMIX 1 EACH IV SCH (06:25)
[2019-03-25] MEDS: METOPROLOL TARTRATE 25 MG TABLET PO SCH ×2 (08:42→20:30)
[2019-03-25] MEDS: PANTOPRAZOLE 40 MG TABLET PO SCH (08:42)
[2019-03-25] MEDS: FINASTERIDE 5 MG TABLET PO SCH (08:42)
[2019-03-25] MEDS: methylPREDNISolone SOD SUC 40 MG/1 ML VIAL IV SCH ×2 (08:42→23:11)
[2019-03-25] MEDS: amLODIPine 10 MG TABLET PO SCH (08:42)
[2019-03-25] MEDS: ENOXAPARIN 40 MG/0.4 ML SYRINGE SUBCUT SCH (08:44)
[2019-03-25] MEDS: BUDESONIDE/FORMOTEROL 160-4.5 INHALER 6 GM INH SCH ×2 (08:46→20:30)
[2019-03-25] MEDS: SODIUM CHLORIDE 0.65% NASAL SPRAY 45 ML BOTTLE BOTH NARES PRN (08:49)
[2019-03-25] MEDS: TAMSULOSIN 0.4 MG CAPSULE PO SCH (20:29)
[2019-03-26] MEDS: ALBUTEROL/IPRATROPIUM 3 ML NEB RESP TX SCH ×2 (00:46→07:20)
[2019-03-26 07:27] VITALS: BP 120/74
[2019-03-26] MEDS: FINASTERIDE 5 MG TABLET PO SCH (08:36)
[2019-03-26] MEDS: METOPROLOL TARTRATE 25 MG TABLET PO SCH (08:36)
[2019-03-26] MEDS: amLODIPine 10 MG TABLET PO SCH (08:37)
[2019-03-26] MEDS: methylPREDNISolone SOD SUC 40 MG/1 ML VIAL IV SCH (08:37)
[2019-03-26] MEDS: PANTOPRAZOLE 40 MG TABLET PO SCH (08:37)
[2019-03-26] MEDS: ENOXAPARIN 40 MG/0.4 ML SYRINGE SUBCUT SCH (08:43)
[2019-03-26] MEDS: BUDESONIDE/FORMOTEROL 160-4.5 INHALER 6 GM INH SCH (08:45)
[2019-03-26] MEDS ORDERED: LEVOFLOXACIN 750 MG TABLET PO SCH (09:00)
== END 2019-03-26 12:58 | disposition home or self-care (01) | DRG 191 ==
LOC: N.ED 21:35 → N.EDINP 21:35 → N.2E 03-23 02:52 → SUATTDRO 03-23 10:30
PROVIDERS: ADMIT Family Medicine; ATTEND Internal Medicine